=== PATIENT | male | born 1955 | race African-American/Black ===

== ENCOUNTER 2021-08-08 18:37 | Emergency (ER) | payer MEDICARE, BC ==
[~2021-08-08] VITALS: Ht 172.7 cm; Wt 86.0 kg
[~2021-08-08 18:37] MED LIST: ASPIRIN325 MG PO; ATORVASTATIN CA40 MG PO; AZOR1 TA1 PO; AZOR1 TA2 PO; BACTRIM DS1 TAB PO; CHLORTHALID25 MG PO; CLONIDINE0.1 MG PO; GABAPENTIN300 MG PO; K-DUR/KLOR-CON10 MEQ PO; LEXAPRO10 MG PO; LORAZEPAM0.5 MG PO; LORTAB 10 PO; LORTAB 10-325 M1 TAB PO; LOSARTAN POT100 MG PO; LOSARTAN POTAS100 MG PO; MAXZIDE PO; METO50TA52 PO; METOPROL TAR50 MG PO; NIFEDIPINE60 MG PO; NUCYNTA50 MG PO; PLAVIX75 MG PO; RAPAFLO8 MG PO; SAVAYSA60 MG PO; SOMA350 MG PO; TAMSULOSIN0.4 MG PO; TOPROL XL PO; TOPROL XL100 MG PO; TRAMADOL HCL50 MG PO; ULTRAM50 M1 PO; XANAX0.25 MG PO
[2021-08-08 19:31] VITALS: BP 188/87
[2021-08-08 19:43] LABS: HEMATOCRIT 42.9 % (39.0-50.0); MEAN CELL VOLUME 86.8 fL CALC (80.0-100.0); MEAN CORPUSCULAR HGB 28.3 pG CALC (26.0-32.0); MEAN CORPUSCULAR HGB CONC 32.6 g/dL CAL (32.0-36.0); NEUT# 4.56 thou/uL (1.82-7.42); RED BLOOD COUNT 4.94 mill/uL (4.70-6.10); RED CELL DISTRI WIDTH 12.5 % (11.5-15.5)
[2021-08-08 19:58] LABS: ALBUMIN 4.4 g/dL (3.2-5.0); ALKALINE PHOSPHATASE 95 u/l (38-126); BUN 9 mg/dL (8-23); BUN/CREATININE RATIO 10 (12-20 (CALC)); CARBON DIOXIDE 25 mmol/l (22-30); CHLORIDE 96 mmol/l (95-108); CREATININE 0.8 mg/dL (0.7-1.3); GFR > 60 ML/MIN (>=60 (CALC)); GFR FOR AFR.AMER. > 60 ML/MIN (>=60 (CALC)); LIPASE 28 u/l (23-300); POTASSIUM 3.3 mmol/l (3.5-5.1); SGOT/AST 24 u/l (19-48); TOTAL PROTEIN 8.5 g/dL (6.3-8.2)
[2021-08-08 20:07] LABS: ANION GAP 19 (6-22 (CALC)); BILIRUBIN, TOTAL 0.5 mg/dL (0.0-1.4); SODIUM 137 mmol/l (137-146)
[2021-08-08 20:09] LABS: ACT PARTIAL THROMBO TIME 30.3 SECONDS (20.0-32.5); INTERNATIONAL NORMALIZED RATIO 1.1 RATIO (0.7-1.3)
[2021-08-08 20:54] LABS: URINE BILIRUBIN - DIPSTICK NEGATIVE (NEGATIVE); URINE BLOOD DIPSTICK SMALL (NEGATIVE); URINE COLOR YELLOW; URINE GLUCOSE - DIPSTICK >=1000 mg/dL (NEGATIVE); URINE KETONE NEGATIVE (NEGATIVE); URINE LEUK ESTERASE NEGATIVE (NEGATIVE); URINE PROTEIN - DIPSTICK NEGATIVE (NEG-TRACE); URINE SPECIFIC GRAVITY 1.015; URINE UROBILINOGEN - DIPSTICK 0.2 E.U./dL (0.2)
[2021-08-08 20:57] LABS: URINE NITRITE - DIPSTICK NEGATIVE (Negative)
[2021-08-08 21:08] LABS: URINE WBC 0-2 WBC/hpf (0-5)
== END 2021-08-08 21:36 | disposition left against medical advice (07) ==
LOC: ED 18:37
DX: R06.02 Shortness of breath (principal); F41.9 Anxiety disorder, unspecified; R94.31 Abnormal electrocardiogram [ECG] [EKG]; R79.89 Other specified abnormal findings of blood chemistry; I10 Essential (primary) hypertension; Z91.19 Patient's noncompliance with other medical treatment and regimen; Z20.822 Contact with and (suspected) exposure to COVID-19
CPT/HCPCS: J2060